=== PATIENT | female | born 1935 | race Caucasian/White ===

== ENCOUNTER 2016-09-14 07:36 | Day surgery (SDC) | payer MEDICARE ==
[2016-09-14] MEDS ORDERED: PROMETHAZINE HCL INJ 25 MG/1 ML VIAL ONE (07:47)
[2016-09-14] MEDS ORDERED: GLYCOPYRROLATE INJ 0.4 MG/2 ML VIAL ONE (07:47)
[2016-09-14] MEDS ORDERED: ONDANSETRON HCL INJ/PF 4 MG/2 ML SDV ONE (07:47)
[2016-09-14] MEDS ORDERED: NALOXONE HCL INJ/PF 0.4 MG/1 ML SDV ONE (07:47)
[2016-09-14] MEDS ORDERED: FLUMAZENIL INJ 0.5 MG/5 ML VIAL IV ONE (07:48)
[2016-09-14] MEDS ORDERED: EPINEPHRINE INJ 1 MG/10 ML DISP.SYRIN ONE (07:48)
[2016-09-14] MEDS ORDERED: MIDAZOLAM 2 MG/2 ML INJ ONE (07:48)
[2016-09-14] MEDS ORDERED: GLUCAGON,HUMAN RECOMB 1 MG INJ ONE (07:49)
[2016-09-14] MEDS: MIDAZOLAM 2 MG/2 ML INJ ONE ×2 (08:28→08:33)
[2016-09-14] MEDS: FENTANYL CITRATE INJ/PF 100 MCG/2 ML AMPUL ONE ×2 (08:30→08:35)
--- NOTE | 2016-09-14 09:24 | Operative Report ---
Operative Report DATE OF SURGERY: 09/14/16 PREOPERATIVE DIAGNOSIS: Personal history of colon polyps POSTOPERATIVE DIAGNOSIS: Same with multiple polyps of the ascending colon and sigmoid colon; extensive sigmoid diverticulosis OPERATION: 1 total colonoscopy to cecum. 2. Multiple polypectomies of ascending colon and sigmoid colon SURGEON: HERIBERTO DANG ANESTHESIA: Moderate Sedation TISSUE REMOVED OR ALTERED: Multiple polyps COMPLICATIONS: No ESTIMATED BLOOD LOSS: none INTRAOPERATIVE FINDINGS: See below PROCEDURE: Obtaining informed consent the patient was taken from the preoperative holding area to the main endoscopy suite where monitoring devices were attached to the patient. Plan and surgical timeout were conducted The patient was placed in the left lateral decubitus position with knees to chest. A perianal examination was performed. There was no visible or palpable anorectal pathology. Sphincter tone was felt to be normal. The flexible adult colonoscope was advanced through the anal rectal canal, all the way to the cecum. Utilization of the cecum was achieved and the ileocecal valve, the appendiceal orifice and transillumination of the anterior abdominal wall. This was an excellent study on the well-prepped bowel. In the ascending colon there were 2 small APPROXIMATELY 2 mm each, both removed with cold forceps device, and retained his polyps and labeled accordingly. The sigmoid colon was a small elevated 2-3 mm polyp which was also removed with the cold forceps device. The colonoscope was withdrawn slowly and methodically checked and the mucosa carefully. There was no evidence of tumor, stricture, bleeding . There were extensive sigmoid diverticulosis ;The scope was slowly withdrawn through the anal rectal canal. Complete visualization of the rectum was achieved with photodocumentation. The scope was withdrawn to the patient's anus. The patient tolerated the procedure well and was taken to the recovery area in stable condition. Procedure surveillance guidelines, will discuss follow-up colonoscopy in 3 years , or sooner if symptoms develop
--- NOTE | 2016-09-14 09:26 | PDOC DISCHARGE SUMMARY ---
Discharge Summary (SDC) - Discharge Final Diagnosis: Multiple colon polyps Date of Surgery: 09/14/16 Discharge Date: 09/14/16 Condition: Good Treatment or Instructions: [facility] [place] [id number] POST ENDOSCOPY DISCHARGE INSTRUCTIONS 1. Diet: Start clear liquids that a regular diet as tolerated. 2. Resume all preoperative medications. All oral anticoagulants and aspirins can be resumed 24 hours after procedure. 3. If a polypectomy was performed some bleeding per rectum may occur. This should stop within 3 days. If not, please contact the office. 4. If you had a colonoscopy you may experience some bloating and delayed return of normal bowel function for several days, your regular bowel movement pattern should resume within a week. 5. Please contact [facility] at to make an appointment with Dr. Renee for 1 to 3 weeks following procedure. 6. If you have any questions or concerns regarding your care,treatment plan or follow up, please contact our office. 7. Per clinical guidelines we recommend you undergo a repeat colonoscopy in 3 years. Discharge Diet: As Tolerated Discharge Activity: Activity As Tolerated Home Care Assistance: None Needed Report the Following to Your Physician Immediately: Shortness of Breath, Increase in Pain, Fever over 101 Degrees
[2016-09-14 10:34] VITALS: BP 119/86
== END 2016-09-14 10:30 | disposition home or self-care (01) ==
LOC: END 07:36
PROVIDERS: ATTEND Surgery
PROC: 0DBN8ZX Excision of Sigmoid Colon, Via Natural or Artificial Opening Endoscopic, Diagnostic (ICD-10-PCS; 2016-09-14)
PROC: 0DBK8ZX Excision of Ascending Colon, Via Natural or Artificial Opening Endoscopic, Diagnostic (ICD-10-PCS; principal; 2016-09-14 08:15)
DX: D12.2 Benign neoplasm of ascending colon (principal); D12.5 Benign neoplasm of sigmoid colon; K57.30 Diverticulosis of large intestine without perforation or abscess without bleeding; E78.00 Pure hypercholesterolemia, unspecified; I10 Essential (primary) hypertension; M19.90 Unspecified osteoarthritis, unspecified site; I25.2 Old myocardial infarction; Z88.8 Allergy status to other drugs, medicaments and biological substances; Z79.899 Other long term (current) drug therapy; Z79.82 Long term (current) use of aspirin
CPT/HCPCS: 45380; 88305 ×2; J2250; J3010; J0171; J1610; J2310; J2405; J2550; J3490

== ENCOUNTER → 2016-09-26 | Outpatient (CLI) | payer MEDICARE ==
[2016-09-26 09:38] LABS: ALANINE AMINOTRANSFERASE 23 U/L (9-52); ALBUMIN 3.8 g/dL (3.5-5.0); ALKALINE PHOSPHATASE 59 U/L (38-126); ASPARTATE AMINO TRANSFERASE 24 U/L (14-36); BILIRUBIN,DIRECT 0.1 mg/dL (0.0-0.4); BILIRUBIN,TOTAL 0.5 mg/dL (0.2-1.3); CHOLESTEROL 131.22 mg/dL (0-200); Direct HDL 72 mg/dL (>40); TOTAL PROTEIN 5.7 g/dL (6.3-8.2); TRIGLYCERIDES 69 mg/dL (<150)
[2016-09-26 09:40] LABS: ANION GAP 8 (5-19); BLOOD UREA NITROGEN 11 mg/dL (7-20); CALCIUM 9.6 mg/dL (8.4-10.2); CARBON DIOXIDE 30 mmol/L (22-30); CHLORIDE 104 mmol/L (98-107); CREATININE RESULT 0.49 mg/dL (0.52-1.25); GLUCOSE 92 mg/dL (75-110); POTASSIUM 4.1 mmol/L (3.6-5.0)
[2016-09-26 09:49] LABS: DIRECT LDL 38 mg/dL (<100)
== END ==
LOC: OD 08:17
PROVIDERS: ATTEND Internal Medicine Cardiovascular Disease
DX: E78.00 Pure hypercholesterolemia, unspecified (principal); Z79.899 Other long term (current) drug therapy
CPT/HCPCS: 36415; 80048; 80061; 80076

== ENCOUNTER → 2016-10-24 | Outpatient (CLI) | payer MEDICARE ==
[~2016-10-24] MED LIST: REGADENOSON INJ 0.4 MG/5 ML DISP.SYRIN IV ONE
--- NOTE | 2016-10-25 13:53 | RADIOLOGY REPORT ---
STRESS TEST REPORT PATIENT NAME: CATHY CALDERON ROOM#: DATE OF SERVICE: 10/24/2016 AGE: 81Y ORDER#: [id number] REFERRING MD: MATHEW DRIVER M.D. PROCEDURE PERFORMED REST/STRESS SINGLE ISOTOPE CARDIOLITE SPECT IMAGING WITH IV LEXISCAN STRESS AND GATED SPECT IMAGING INDICATION For assessment of coronary artery disease. The patient is 25 years post PTCA of the LAD. CLINICAL HISTORY This is a 81-year-old female with history of PTCA of her LAD some 25 years ago with continuing cardiac risk factors of hypertension, hypercholesterolemia, currently complains of chest pains. PROCEDURE The patient received IV Lexiscan 0.4 mg infused over ten seconds. The resting heart rate was 58 bpm and increased to 77 bpm at end infusion. The resting BP was 112/54 and increased to 119/43 at end infusion. The patient had symptoms of shortness of breath, no chest pains. The resting 12 lead EKG showed sinus rhythm at 58 bpm, mild nonspecific inferior ST changes with low precordial voltages. At end infusion, no increased ST changes were seen. Myocardial perfusion imaging was performed at rest 60 minutes following injection of 14.97 mCi Cardiolite. Ten seconds after the IV Lexiscan injection, the patient was injected with 44.7 mCi Cardiolite and flushed. Gated post stress tomographic imaging was performed 60 minutes after stress. FINDINGS The overall quality of the study is fair. There was significant breast attenuation; therefore, attenuation correction software was used. The left ventricular cavity was noted to be slightly enlarged on the stress images compared to the rest images. There is evidence of mild transient ischemic dilatation of the left ventricle. The TID ratio was 1.17. The left ventricular ejection fraction was 62%. SPECT images showed a severe reversible perfusion defect in the apex, apical anterior wall, and apical anterolateral wall. There is also a small, fixed perfusion defect of moderate severity in the apical inferior wall. The gated SPECT imaging showed reduced motion and contraction in the apical anterior wall and the apex. The left ventricular ejection fraction was calculated to be 62%. IMPRESSION: MYOCARDIAL PERFUSION IMAGING IS ABNORMAL. THERE IS A MODERATE AREA OF SEVERE REVERSIBLE PERFUSION DEFECT IN THE APEX, APICAL ANTERIOR WALL, AND APICAL ANTEROLATERAL WALL, WITH A SMALLER, MODERATE SEVERITY FIXED PERFUSION DEFECT IN THE APICAL INFERIOR WALL. THE OVERALL LEFT VENTRICULAR SYSTOLIC FUNCTION WAS NORMAL AND THERE WAS REDUCED MOTION CONTRACTION IN THE APICAL ANTERIOR WALL. NO PRIOR STUDIES FOR COMPARISON. INTERPRETING PHYSICIAN: MATHEW DRIVER M.D. /: LISA TT: [id number] ID: [id number] /: [id number] TD: [id number] JOB: [id number] cc:Sarthak GR M.D. > MTDPuneet
== END ==
LOC: RAD 06:41
PROVIDERS: ATTEND Internal Medicine Cardiovascular Disease
DX: R07.9 Chest pain, unspecified (principal)
CPT/HCPCS: 93017; 78452; A9500; J2785; Q9969

== ENCOUNTER → 2017-05-15 | Outpatient (CLI) | payer MEDICARE ==
[2017-05-15 09:50] LABS: ALANINE AMINOTRANSFERASE 33 U/L (9-52); ALBUMIN 3.5 g/dL (3.5-5.0); ALKALINE PHOSPHATASE 62 U/L (38-126); ANION GAP 10 (5-19); ASPARTATE AMINO TRANSFERASE 23 U/L (14-36); BILIRUBIN,DIRECT 0.4 mg/dL (0.0-0.4); BILIRUBIN,TOTAL 0.4 mg/dL (0.2-1.3); BLOOD UREA NITROGEN 9 mg/dL (7-20); CALCIUM 9.4 mg/dL (8.4-10.2); CARBON DIOXIDE 31 mmol/L (22-30); CHLORIDE 100 mmol/L (98-107); CHOLESTEROL 101.85 mg/dL (0-200); CREATININE RESULT 0.54 mg/dL (0.52-1.25); Direct HDL 59 mg/dL (>40); GLUCOSE 100 mg/dL (75-110); POTASSIUM 4.1 mmol/L (3.6-5.0); SODIUM 140.7 mmol/L (137-145); TOTAL PROTEIN 5.7 g/dL (6.3-8.2); TRIGLYCERIDES 54 mg/dL (<150)
[2017-05-15 10:01] LABS: DIRECT LDL 31 mg/dL (<100)
== END ==
LOC: OD 08:31
PROVIDERS: ATTEND Internal Medicine Cardiovascular Disease
DX: E78.00 Pure hypercholesterolemia, unspecified (principal); Z79.899 Other long term (current) drug therapy
CPT/HCPCS: 36415; 80048; 80061; 80076

== ENCOUNTER → 2017-10-22 | Outpatient (CLI) | payer MEDICARE ==
--- NOTE | 2017-10-22 12:18 | RADIOLOGY REPORT (SQ) ---
EXAM DESCRIPTION: FOOT LEFT COMPLETE COMPLETED DATE/TIME: 10/22/2017 12:00 pm REASON FOR STUDY: LEFT FOOT PAIN M79.672 PAIN IN LEFT FOOT COMPARISON: None. NUMBER OF VIEWS: Three views. TECHNIQUE: AP, lateral and oblique radiographic images acquired of the left foot. LIMITATIONS: None. FINDINGS: MINERALIZATION: Normal. BONES: No acute fracture or dislocation. No worrisome bone lesions. JOINTS: There are extensive degenerative joint changes in the tarsal/metatarsal joints. Old fracture s cannot be excluded. SOFT TISSUES: No soft tissue swelling. No foreign body. OTHER: No other significant finding. IMPRESSION: Degenerative joint disease in the tarsal/metatarsal joints. TECHNICAL DOCUMENTATION: JOB ID: [id number] [employer]- All Rights Reserved Reading location - IP/workstation name: [email or web address]
== END ==
LOC: OD 11:41
PROVIDERS: ATTEND Family Medicine
DX: M79.672 Pain in left foot (principal); M19.072 Primary osteoarthritis, left ankle and foot

== ENCOUNTER 2017-12-02 13:49 | Emergency (ER) | payer MEDICARE ==
[2017-12-02] MEDS ORDERED: ASPIRIN 81 MG TABLET, CHEWABLE PO ONE (14:57)
--- NOTE | 2017-12-02 14:57 | ER Document Report ---
ED Medical Screen (RME) - General Chief Complaint: Shortness Of Breath Stated Complaint: POSSIBLE ALLERGIC REACTION Time Seen by Provider: 12/02/17 14:55 Mode of Arrival: Ambulatory Information source: Patient Notes: This is a pleasant 82-year-old female with a history of coronary artery disease (VT in 1991, PTCA of the LAD), hypertension, dyslipidemia who presents to the emergency room with shortness of breath that she attributes to a possible allergic reaction. Patient was on holiday in [place] and states she was walking through the lobby last night that had a new carpet and she started to get short of breath. When she went out into the open air, she states that the shortness of breath resolved. She went out to dinner and return back to the [facility] and noticed that as she was walking through the lobby, she started to get shortness of breath and chest heaviness again. This time, the discomfort persisted and she still had it when she woke up this morning in [place] this morning at approximately 8 AM. She drove back to [place] shortly thereafter and arrives with her . She does state that she is feeling better but not back to normal. Primary CARE physician: Dr. Luther [employer] Rebuilder: Dr. Hammonds TRAVEL OUTSIDE OF THE U.S. IN LAST 30 DAYS: No - Related Data Allergies/Adverse Reactions: lovastatin [From Mevacor] Allergy (Mild, Verified 12/02/17 13:53) rash pollen extracts Allergy (Verified 12/02/17 13:53) Stuffy Nose chlorpheniramine [From Triaminic] Adverse Reaction (Severe, Verified 12/02/17 13 :53) speeds heartrate chlorpheniramine maleate [From Triaminic] Adverse Reaction (Severe, Verified 04/11 13:53) speeds heartrate dextromethorphan HBr [From Triaminic] Adverse Reaction (Severe, Verified 13:53) speeds heartrate phenylephrine HCl [From Triaminic] Adverse Reaction (Severe, Verified 12/02/17 13:53) speeds heartrate phenylpropanolamine HCl [From Triaminic] Adverse Reaction (Severe, Verified 04/11 13:53) speeds heartrate xylometazoline HCl [From Triaminic] Adverse Reaction (Severe, Verified 12/02/17 13:53) speeds heartrate Past Medical History - Social History Chew tobacco use (# tins/day): No Frequency of alcohol use: None Drug Abuse: None - Past Medical History Cardiac Medical History: Reports: Hx Coronary Artery Disease, Hx Heart Attack - 1991, Hx Hypertension Pulmonary Medical History: Denies: Hx Asthma, Hx Bronchitis, Hx COPD, Hx Pneumonia Neurological Medical History: Denies: Hx Cerebrovascular Accident, Hx Seizures Renal/ Medical History: Denies: Hx Peritoneal Dialysis Musculoskeltal Medical History: Reports Hx Arthritis Past Surgical History: Denies: Hx Hysterectomy - Immunizations Hx Diphtheria, Pertussis, Tetanus Vaccination: Yes Physical Exam - Vital signs Vitals: Temp Pulse Resp BP Pulse Ox 98.5 F 72 18 116/54 L 93 12/02/17 13:57 12/02/17 13:57 12/02/17 13:57 12/02/17 13:57 12/02/17 13:57 Course - Vital Signs Vital signs: Temp Pulse Resp BP Pulse Ox 98.5 F 72 18 116/54 L 93 12/02/17 13:57 12/02/17 13:57 12/02/17 13:57 12/02/17 13:57 12/02/17 13:57 Doctor's Discharge - Discharge Referrals: RAN LUTHER MD [Primary Care Provider] - Follow up as needed
[2017-12-02 15:35] LABS: ABSOLUTE BASOPHILS # (AUTO) 0.1 10^3/uL (0.0-0.2); ABSOLUTE EOSINOPHILS # (AUTO) 0.1 10^3/uL (0.0-0.6); ABSOLUTE LYMPHOCYTES (AUTO) 1.7 10^3/uL (0.5-4.7); ABSOLUTE MONOCYTES (AUTO) 1.5 10^3/uL (0.1-1.4); ABSOLUTE NEUT (AUTO) 7.9 10^3/uL (1.7-8.2); BASOPHILS % (AUTO) 0.6 % (0-2); EOSINOPHILS % (AUTO) 0.6 % (0-6); HEMATOCRIT 40.1 % (36.0-47.0); HEMOGLOBIN 13.8 g/dL (12.0-15.5); LYMPHOCYTES % (AUTO) 15.2 % (13-45); MEAN CORPUSCULAR HEMOGLOBIN 29.5 pg (27.0-33.4); MEAN CORPUSCULAR HGB CONC 34.5 g/dL (32.0-36.0); MEAN CORPUSCULAR VOLUME 85 fl (80-97); MONOCYTES % (AUTO) 13.5 % (3-13); PLATELET COUNT 189 10^3/uL (150-450); RED BLOOD COUNT 4.69 10^6/uL (3.72-5.28); RED CELL DISTRIBUTION WIDTH 14.2 % (11.5-14.0); SEGMENTED NEUTROPHILS % (AUTO) 70.1 % (42-78); TOTAL CELLS COUNTED % (AUTO) 100 %; WHITE BLOOD COUNT 11.3 10^3/uL (4.0-10.5)
[2017-12-02 15:53] LABS: ALANINE AMINOTRANSFERASE 22 U/L (9-52); ALKALINE PHOSPHATASE 58 U/L (38-126); ANION GAP 13 (5-19); ASPARTATE AMINO TRANSFERASE 26 U/L (14-36); BILIRUBIN,DIRECT 0.3 mg/dL (0.0-0.4); BILIRUBIN,TOTAL 0.5 mg/dL (0.2-1.3); BLOOD UREA NITROGEN 17 mg/dL (7-20); CALCIUM 9.4 mg/dL (8.4-10.2); CARBON DIOXIDE 29 mmol/L (22-30); CHLORIDE 102 mmol/L (98-107); CREATINE KINASE 61 U/L (30-135); GLUCOSE 119 mg/dL (75-110); POTASSIUM 3.5 mmol/L (3.6-5.0); SODIUM 143.5 mmol/L (137-145); TOTAL PROTEIN 6.7 g/dL (6.3-8.2)
--- NOTE | 2017-12-02 15:57 | RADIOLOGY REPORT (SQ) ---
EXAM DESCRIPTION: CHEST SINGLE VIEW COMPLETED DATE/TIME: 12/02/2017 3:45 pm REASON FOR STUDY: sob COMPARISON: None. NUMBER OF VIEWS: One view. TECHNIQUE: Single frontal radiographic view of the chest acquired. LIMITATIONS: None. FINDINGS: LUNGS AND PLEURA: Minimal basilar subsegmental atelectasis or scar. No evidence of acute infiltrate. No pneumothorax. No significant pleural fluid MEDIASTINUM AND HILAR STRUCTURES: No masses. Contour normal. HEART AND VASCULAR STRUCTURES: Cardiomegaly, heart size likely accentuated by portable technique. No evidence of failure, however. BONES: Osteopenic. HARDWARE: None in the chest. OTHER: No other significant finding. IMPRESSION: No acute cardiopulmonary disease. TECHNICAL DOCUMENTATION: JOB ID: [id number] [email or web address]- All Rights Reserved Reading location - IP/workstation name: [email or web address]
[2017-12-02 16:09] LABS: CREATINE KINASE MB 1.05 ng/mL (<4.55)
[2017-12-02 16:13] LABS: TROPONIN I < 0.012 ng/mL
[2017-12-02] MEDS ORDERED: METHYLPREDNISOLONE INJ 125 MG/2 ML SDV IV ONE (16:26)
--- NOTE | 2017-12-02 16:27 | ER Document Report ---
ED General - General Chief Complaint: Shortness Of Breath Stated Complaint: POSSIBLE ALLERGIC REACTION Time Seen by Provider: 12/02/17 14:55 Mode of Arrival: Ambulatory TRAVEL OUTSIDE OF THE [place].S[place] IN LAST 30 DAYS: No - HPI Notes: 82-year-old female presents to the ED for concerns of difficulty breathing after she was exposed to new carpeting last night in the motel, states she is walking down the hallway were new carpet was placed, caused her to have a little difficulty breathing, resolved when she was outside. Return back to the hotel approximately 2 hours later, had want to be stable tell, with carpet, this did irritate her breathing. Patient woke up this morning, patient states she had to then walk to the hallway with a new carpet which also caused her to have difficulty breathing. Denies fevers, chills, chest pain,palpitations, shortness of breath, dyspnea, nausea, vomiting, diarrhea, abdominal pain, hematuria,blurred vision, double vision, loss of vision, speech changes, LH, dizziness, syncope, headaches, wheezing, ST, URI, neck pain, weakness, bowel or bladder dysfunction, saddle anesthesia, numbness or tingling in bilateral upper or lower extremities equally, muscle paralysis, weakness in bilateral upper or lower extremities equally or rash. Denies IV drug use. - Related Data Allergies/Adverse Reactions: lovastatin [From Mevacor] Allergy (Mild, Verified 12/02/17 13:53) rash pollen extracts Allergy (Verified 12/02/17 13:53) Stuffy Nose chlorpheniramine [From Triaminic] Adverse Reaction (Severe, Verified 12/02/17 13 :53) speeds heartrate chlorpheniramine maleate [From Triaminic] Adverse Reaction (Severe, Verified 04/11 13:53) speeds heartrate dextromethorphan HBr [From Triaminic] Adverse Reaction (Severe, Verified 13:53) speeds heartrate phenylephrine HCl [From Triaminic] Adverse Reaction (Severe, Verified 12/02/17 13:53) speeds heartrate phenylpropanolamine HCl [From Triaminic] Adverse Reaction (Severe, Verified 04/11 13:53) speeds heartrate xylometazoline HCl [From Triaminic] Adverse Reaction (Severe, Verified 12/02/17 13:53) speeds heartrate Past Medical History - General Information source: Patient - Social History Smoking Status: Current Every Day Smoker Chew tobacco use (# tins/day): No Frequency of alcohol use: None Drug Abuse: None Family History: Reviewed & Not Pertinent Patient has suicidal ideation: No Patient has homicidal ideation: No - Past Medical History Cardiac Medical History: Reports: Hx Coronary Artery Disease, Hx Heart Attack - 1991, Hx Hypercholesterolemia, Hx Hypertension Pulmonary Medical History: Denies: Hx Asthma, Hx Bronchitis, Hx COPD, Hx Pneumonia Neurological Medical History: Denies: Hx Cerebrovascular Accident, Hx Seizures Renal/ Medical History: Denies: Hx Peritoneal Dialysis Musculoskeltal Medical History: Reports Hx Arthritis Past Surgical History: Reports: Hx Orthopedic Surgery - bilateral knee replacements. Denies: Hx Hysterectomy - Immunizations Hx Diphtheria, Pertussis, Tetanus Vaccination: Yes Hx Pneumococcal Vaccination: 06/25/07 Review of Systems - Review of Systems Constitutional: No symptoms reported EENT: No symptoms reported Cardiovascular: No symptoms reported Respiratory: See HPI Gastrointestinal: No symptoms reported Genitourinary: No symptoms reported Female Genitourinary: No symptoms reported Musculoskeletal: No symptoms reported Skin: No symptoms reported Hematologic/Lymphatic: No symptoms reported Neurological/Psychological: No symptoms reported Physical Exam - Vital signs Vitals: Temp Pulse Resp BP Pulse Ox 98.5 F 72 18 116/54 L 93 12/02/17 13:57 12/02/17 13:57 12/02/17 13:57 12/02/17 13:57 12/02/17 13:57 - Notes Notes: PHYSICAL EXAMINATION: GENERAL: Well-appearing, well-nourished and in no acute distress. HEAD: Atraumatic, normocephalic. EYES: Pupils equal round and reactive to light, extraocular movements intact, conjunctiva are normal. ENT: Nares patent, oropharynx clear without exudates. Moist mucous membranes. NECK: Normal range of motion, supple without lymphadenopathy LUNGS: Breath sounds clear to auscultation bilaterally and equal. No wheezes rales or rhonchi. HEART: Regular rate and rhythm without murmurs ABDOMEN: Soft, nontender, nondistended abdomen. No guarding, no rebound. No masses appreciated. Female : deferred Musculoskeletal: Normal range of motion, no pitting or edema. No cyanosis. NEUROLOGICAL: Cranial nerves grossly intact. Normal speech, normal gait. Normal sensory, motor exams PSYCH: Normal mood, normal affect. SKIN: Warm, Dry, normal turgor, no rashes or lesions noted. Course - Re-evaluation Re-evalutation: 12/02/17 19:20 82-year-old female evaluation for difficulty with breathing, has since resolved since patient was brought to her room in the ED, CBC negative for leukocytosis or anemia, CMP negative for any hepatic or renal deficiency, electrolytes stable. 2 separate sets of cardiac enzymes negative, EKG negative for any STEMI , chest x-ray unremarkable. I have reevaluated this patient multiple times and I estimate there is LOW risk for RUPTURED ESOPHAGUS, PNEUMOTHORAX, PULMONARY EMBOLISM, ACUTE CORONARY SYNDROME, OR THORACIC AORTIC DISSECTION, thus I consider the discharge disposition reasonable. no significant life threatening changes are noted. The patient and I have discussed the diagnosis and risks, and we agree with discharging home with close follow-up. We also discussed returning to the Emergency Department immediately if new or worsening symptoms occur. We have discussed the symptoms which are most concerning (e.g., bloody sputum, worsening pain or shortness of breath) that necessitate immediate return. The patient and I have discussed the diagnosis and risks, and we agree with discharging home and close follow-up. We also discussed returning to the Emergency Department immediately if new or worsening symptoms occur with the understanding that symptoms and presentations can change. At this time will discharge with return precautions and follow-up recommendations. Verbal discharge instructions given a the bedside and opportunity for questions given. We have discussed the symptoms which are most concerning (e.g., saddle anesthesia, urinary or bowel incontinence or retention, changing or worsening pain) that necessitate immediate return. Medication warnings reviewed. All questions and concerns answered by this provider. Patient is in agreement with this plan and has verbalized understanding of return precautions and the need for primary care follow-up in the next 24-72 hours. Patient verbalized understanding of plan of care and agree with plan of care. - Vital Signs Vital signs: Temp Pulse Resp BP Pulse Ox 98.5 F 72 18 130/60 H 87 L 12/02/17 13:57 12/02/17 13:57 12/02/17 15:49 12/02/17 15:46 12/02/17 15:46 - Laboratory Result Diagrams: 12/02/17 15:26 12/02/17 15:26 Laboratory results interpreted by me: 12/02/17 12/02/17 15:26 15:26 WBC 11.3 H RDW 14.2 H Monocytes % 13.5 H Absolute Monocytes 1.5 H Potassium 3.5 L Glucose 119 H Discharge - Discharge Clinical Impression: evalation of shortness of breath Allergic reaction Qualifiers: Encounter type: initial encounter Qualified Code(s): T78.40XA - Allergy, unspecified, initial encounter Condition: Stable Disposition: HOME, SELF-CARE Instructions: Acute Allergic Reaction ([facility]) Additional Instructions: Your labs are negative, if your symptoms persist return to the emergency room. Follow-up with your doctor within 24 hours. Return immediately for any new or worsening symptoms. Follow up with primary care provider, call tomorrow to make followup appointment. Referrals: RAN LUTHER MD [Primary Care Provider] - Follow up tomorrow MATHEW DRIVER MD [EMERITUS] - Follow up as needed
[2017-12-02 19:19] VITALS: BP 106/55
--- NOTE | 2017-12-03 07:51 | EKG REPORT ---
SEVERITY:- OTHERWISE NORMAL ECG - SINUS RHYTHM BORDERLINE LEFT AXIS DEVIATION : Confirmed by: Guille Callaway MD 03-Dec-2017 07:50:09
== END 2017-12-02 19:30 | disposition home or self-care (01) ==
LOC: ER 13:49
DX: T78.40XA Allergy, unspecified, initial encounter (principal); R06.02 Shortness of breath; X58.XXXA Exposure to other specified factors, initial encounter; F17.200 Nicotine dependence, unspecified, uncomplicated; I25.10 Atherosclerotic heart disease of native coronary artery without angina pectoris; I10 Essential (primary) hypertension; I25.2 Old myocardial infarction; Z88.8 Allergy status to other drugs, medicaments and biological substances; Z91.048 Other nonmedicinal substance allergy status
CPT/HCPCS: 93005; 99285; 96374; 36415; 82553; 82550; 85025; 80053; 84484; 71045; 93010; A9270; J2930

== ENCOUNTER → 2018-03-29 | Outpatient (CLI) | payer MEDICARE ==
[2018-03-29 09:17] LABS: ALANINE AMINOTRANSFERASE 28 U/L (9-52); ALBUMIN 3.7 g/dL (3.5-5.0); ALKALINE PHOSPHATASE 56 U/L (38-126); ANION GAP 10 (5-19); ASPARTATE AMINO TRANSFERASE 26 U/L (14-36); BILIRUBIN,DIRECT 0.2 mg/dL (0.0-0.4); BILIRUBIN,TOTAL 0.6 mg/dL (0.2-1.3); BLOOD UREA NITROGEN 13 mg/dL (7-20); CALCIUM 9.9 mg/dL (8.4-10.2); CARBON DIOXIDE 29 mmol/L (22-30); CHLORIDE 102 mmol/L (98-107); CHOLESTEROL 129.41 mg/dL (0-200); GLUCOSE 101 mg/dL (75-110); POTASSIUM 4.3 mmol/L (3.6-5.0); SODIUM 140.5 mmol/L (137-145); TOTAL PROTEIN 6.1 g/dL (6.3-8.2); TRIGLYCERIDES 58 mg/dL (<150)
[2018-03-29 09:28] LABS: DIRECT LDL 38 mg/dL (<100)
== END ==
LOC: LAB 08:41
PROVIDERS: ATTEND Internal Medicine Cardiovascular Disease
DX: E78.00 Pure hypercholesterolemia, unspecified (principal); I10 Essential (primary) hypertension; E66.09 Other obesity due to excess calories; Z79.899 Other long term (current) drug therapy
CPT/HCPCS: 36415; 80048; 80061; 80076

== ENCOUNTER → 2018-05-10 | Outpatient (CLI) | payer MEDICARE ==
--- NOTE | 2018-05-10 11:16 | RADIOLOGY REPORT (SQ) ---
EXAM DESCRIPTION: U/S ABDOMEN COMPLETE W/DOPPLER COMPLETED DATE/TIME: 05/10/2018 10:40 am REASON FOR STUDY: R19.00 INTRA-ABDOMINAL AND PELVIC SWELLING, MASS AND LUMP, UNSPECIFIED SITE R19.00 INTRA-ABD AND PELVIC SWELLING, MASS AND LUMP, UNSP SI COMPARISON: None. TECHNIQUE: Dynamic and static grayscale images acquired of the abdomen and recorded on PACS. Additio nal selected color Doppler and spectral images recorded. LIMITATIONS: None. FINDINGS: PANCREAS: No masses. Visualized pancreatic duct normal caliber. LIVER: No masses. Echotexture normal. LIVER VASCULATURE: Normal directional flow of the main portal vein and hepatic veins. GALLBLADDER: No stones. Normal wall thickness. No pericholecystic fluid. ULTRASOUND-DETECTED GOINS'S SIGN: Negative. INTRAHEPATIC DUCTS AND COMMON DUCT: Common bile duct is dilated at 9.7 cm. INFERIOR VENA CAVA: Not imaged. AORTA: No aneurysm. RIGHT KIDNEY: Small, 8.6 cm. Normal echogenicity. No solid or suspicious masses. No hydronephr osis. No calcifications. LEFT KIDNEY: Normal size, 11.2 cm. Normal echogenicity. No solid or suspicious masses. Mild pr ominence of the renal pelvis. No true hydronephrosis. No calcifications. SPLEEN: Normal size, 9.2 cm. No solid masses. PERITONEAL AND PLEURAL SPACES: No ascites or effusions. OTHER: No other significant finding. IMPRESSION: Common bile duct is dilated at 9.7 cm. Correlate for biliary obstruction. The gallblad cassy is normal. TECHNICAL DOCUMENTATION: JOB ID: [id number] [employer]- All Rights Reserved Reading location - IP/workstation name: [email or web address]
--- NOTE | 2018-05-10 11:25 | RADIOLOGY REPORT (SQ) ---
EXAM DESCRIPTION: U/S NON-OB PELVIS LTD W/O DOP COMPLETED DATE/TIME: 05/10/2018 10:40 am REASON FOR STUDY: R19.00 INTRA-ABDOMINAL AND PELVIC SWELLING, MASS AND LUMP, UNSPECIFIED SITE R19.00 INTRA-ABD AND PELVIC SWELLING, MASS AND LUMP, UNSP SI COMPARISON: None. TECHNIQUE: Dynamic and static grayscale images acquired of the pelvis via transabdominal approach an d recorded on PACS. Additional selected color Doppler and spectral images recorded. LIMITATIONS: None. FINDINGS: UTERUS: There is according to the work sheet there is a pelvic mass measuring 6.1 x 3.7 x 5.1 cm. This is said to be anterior to the uterus. This is not very well seen on these images. Acc ording to report of an ultrasound from [facility] from 04/20/2016 the mass is posterior to the body of the uterus. ENDOMETRIAL STRIPE: No focal or generalized thickening. No masses. CERVIX: 1.9 cm. RIGHT OVARY AND DOPPLER: Ovary not seen. LEFT OVARY AND DOPPLER: Ovary not seen. FREE FLUID: None noted. OTHER: No other significant finding. MEASUREMENTS: UTERUS: 4.3 x 3 x 2.4 cm. ENDOMETRIAL STRIPE: 2.7 mm. RIGHT OVARY: Ovary not seen. LEFT OVARY: Ovary not seen. IMPRESSION: Limited study. Pelvic mass may represent a pedunculated fibroid. Consider CT for furth er evaluation. TECHNICAL DOCUMENTATION: JOB ID: [id number] [employer]- All Rights Reserved Rev-11/09 Reading location - IP/workstation name: [email or web address]
== END ==
LOC: RAD 08:15
PROVIDERS: ATTEND Family Medicine
DX: R19.00 Intra-abdominal and pelvic swelling, mass and lump, unspecified site (principal)
CPT/HCPCS: 76700; 76857; 93976

== ENCOUNTER → 2018-05-23 | Outpatient (CLI) | payer MEDICARE ==
--- NOTE | 2018-05-23 10:43 | RADIOLOGY REPORT (SQ) ---
EXAM DESCRIPTION: CT ABD/PELVIS WITH IV ONLY COMPLETED DATE/TIME: 05/23/2018 10:03 am REASON FOR STUDY: PELVIC MASS R19.00 INTRA-ABD AND PELVIC SWELLING, MASS AND LUMP, UNSP SI COMPARISON: CT abdomen pelvis 06/03/2009 Pelvic ultrasound 05/10/2018 TECHNIQUE: CT scan of the abdomen and pelvis performed using helical scanning technique with dynamic intravenous contrast injection. No oral contrast. Images reviewed with lung, soft tissue, and bone windows. Reconstructed coronal and sagittal MPR images reviewed. Delayed images for evaluation of the urinary system also acquired. All images stored on PACS. All CT scanners at this facility use dose modulation, iterative reconstruction, and/or weight based d osing when appropriate to reduce radiation dose to as low as reasonably achievable (ALARA). [facility]: Dose Right [facility]: CareDose [facility]: Dose Right [facility]: Teradose 4D [facility]: Club Venit CONTRAST TYPE AND DOSE: contrast/concentration: Isovue 350.00 mg/ml; Total Contrast Delivered: 98.0 ml; Total Saline Delivered: 72.0 ml RENAL FUNCTION: GFR > 60. RADIATION DOSE: CT Rad equipment meets quality standard of care and radiation dose reduction techniq ues were employed. CTDIvol: 14.8 - 16.6 mGy. DLP: 1647 mGy-cm.. LIMITATIONS: None. FINDINGS: LOWER CHEST: Small hiatal hernia. Lung bases are clear. Spotty coronary artery calcifica tion LIVER: Normal size. No masses. 1.6 cm cyst sub- diaphragmatic surface right lobe liver. No dilated ducts. SPLEEN: Normal size. No focal lesions. PANCREAS: No masses. No significant calcifications. No adjacent inflammation or peripancreatic fluid collections. Pancreatic duct not dilated. GALLBLADDER: No identified stones by CT criteria. No inflammatory changes to suggest cholecystitis. ADRENAL GLANDS: No significant masses or asymmetry. RIGHT KIDNEY AND URETER: No solid masses. Right upper pole 3 cm cortical cyst. Right parapelvic cys ts No significant calcifications. No hydronephrosis or hydroureter. LEFT KIDNEY AND URETER: No solid masses. Right parapelvic cysts. No significant calcifications. N o hydronephrosis or hydroureter. AORTA AND VESSELS: No aneurysm. No dissection. Renal arteries, SMA, celiac without stenosis. RETROPERITONEUM: No retroperitoneal adenopathy, hemorrhage or masses. BOWEL AND PERITONEAL CAVITY: No CT evidence of bowel obstruction or free intraperitoneal air or fluid . Descending and sigmoid colon diverticuli without CT signs of acute diverticulitis APPENDIX: Normal. PELVIS: In the right adnexa, a well-circumscribed intermediate -density mass is present with spotty c alcifications along the superior margin, measuring 40 Hounsfield units. No significant contrast enha ncement. This correlates with ultrasound 05/10/2018 and new compared to study from 2008. This is li pio ovarian in origin, and could be an ovarian cyst or paraovarian cyst. Low-grade ovarian cystic ne oplasm is possible. Pedunculated fibroid is considered less likely. Uterus, left ovary unremarkable . Bladder unremarkable. No free pelvic fluid. No pelvic adenopathy ABDOMINAL WALL: No masses. No hernias. BONES: No significant or acute findings. OTHER: No other significant finding. IMPRESSION: Complex cystic mass with intermediate density and spotty calcifications along the superi or margin in the right adnexa. 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 Paraovar gemma cyst is possible. Pedunculated fibroid is possible but considered less likely TECHNICAL DOCUMENTATION: JOB ID: [id number] Quality ID # [id number]: Final reports with documentation of one or more dose reduction techniques (e.g., Au tomated exposure control, adjustment of the mA and/or kV according to patient size, use of iterative reconstruction technique) 2010 [employer]- All Rights Reserved Reading location - IP/workstation name: MARII
== END ==
LOC: RAD 08:59
PROVIDERS: ATTEND Family Medicine
DX: R19.00 Intra-abdominal and pelvic swelling, mass and lump, unspecified site (principal)
CPT/HCPCS: 74177

== ENCOUNTER → 2018-09-19 | Outpatient (CLI) | payer MEDICARE ==
[2018-09-19 10:04] LABS: ALANINE AMINOTRANSFERASE 24 U/L (9-52); ALBUMIN 3.8 g/dL (3.5-5.0); ALKALINE PHOSPHATASE 58 U/L (38-126); ANION GAP 6 (5-19); ASPARTATE AMINO TRANSFERASE 27 U/L (14-36); BILIRUBIN,DIRECT 0.2 mg/dL (0.0-0.4); BILIRUBIN,TOTAL 0.5 mg/dL (0.2-1.3); BLOOD UREA NITROGEN 12 mg/dL (7-20); CALCIUM 10.1 mg/dL (8.4-10.2); CARBON DIOXIDE 31 mmol/L (22-30); CHLORIDE 100 mmol/L (98-107); CHOLESTEROL 133.92 mg/dL (0-200); GLUCOSE 98 mg/dL (75-110); POTASSIUM 4.1 mmol/L (3.6-5.0); TOTAL PROTEIN 6.1 g/dL (6.3-8.2); TRIGLYCERIDES 68 mg/dL (<150)
[2018-09-19 10:14] LABS: DIRECT LDL 51 mg/dL (<100)
== END ==
LOC: LAB 08:41
PROVIDERS: ATTEND Internal Medicine Cardiovascular Disease
DX: I10 Essential (primary) hypertension (principal); E78.00 Pure hypercholesterolemia, unspecified; Z79.899 Other long term (current) drug therapy
CPT/HCPCS: 36415; 80048; 80061; 80076

== ENCOUNTER → 2018-10-15 | Outpatient (CLI) | payer MEDICARE ==
--- NOTE | 2018-10-16 09:59 | RADIOLOGY REPORT ---
STRESS TEST REPORT PATIENT NAME: CATHY CALDERON ROOM#: DATE OF SERVICE: 10/15/2018 AGE: 83Y ORDER#: [id number] REFERRING MD: MATHEW DRIVER M.D. PROCEDURE PERFORMED: Rest/stress single-isotope Cardiolite SPECT imaging using IV Lexiscan stress and gated SPECT imaging. INDICATIONS: For assessment of coronary artery disease. CLINICAL HISTORY: This is an 83-year-old female with hypercholesterolemia, hypertension, and family history of CAD, known coronary artery disease, currently has exertional dyspnea but no chest pains. REPORT: The patient received IV Lexiscan 0.4 mg infused over 10 seconds and flushed. The resting heart rate was 56 bpm and increased to 92 bpm at end of infusion. The resting blood pressure was 107/56 and stayed around 107/57 at end infusion. The patient had symptoms of feeling weird, no chest pains, minimal shortness of breath, minimal dizziness. The resting 12-lead EKG showed low voltage, NSR, 56, PACs, normal ST segments. At end infusion heart rate was 80 per minute, no ST changes seen. Myocardial perfusion imaging was performed at rest 60 minutes following the injection of 14.72 mCi of Cardiolite. Ten seconds after IV Lexiscan infusion she was injected with 43.6 mCi of Cardiolite and flushed. Gated post-stress tomographic imaging was performed 60 minutes after stress. FINDINGS: The overall quality of the study is fair. This is due to significant breast attenuation on both the rest and stress studies. There is no attenuation correction software due to malfunction of the dual-head camera. Left ventricular cavity is noted to be normal in size on both the rest and stress studies. There is no evidence of abnormal transient ischemic dilatation of the left ventricle. The computer estimated TID ratio of 1.24; this cannot be confirmed visually. SPECT images showed reversible ischemia in the apical anterior wall, moderate sized area, with subtotal reversibility. There is also a small fixed perfusion defect in the apex of the left ventricle; this does not appear to be reversible. Gated SPECT imaging showed no motion contraction in the apex and in the apical anterior wall. The left ventricular ejection fraction was calculated at 66%. IMPRESSION: Myocardial perfusion imaging is abnormal. There is a moderate area of reversible ischemia in the apical anterior wall; the reversibility,however, is subtotal and there is no motion contraction in the apical anterior wall. There is also a small fixed perfusion defect in the apex of the left ventricle but no motion and contraction seen. Overall left ventricular systolic function was 66%. No prior studies for comparison. INTERPRETING PHYSICIAN: MATHEW DRIVER M.D. /: [id number] TT: 0945 ID: [id number] /: [id number] TD: 0940 JOB: [id number] cc:MATHEW DRIVER M.D. > [facility]
== END ==
LOC: RAD 06:43
PROVIDERS: ATTEND Internal Medicine Cardiovascular Disease
DX: R06.02 Shortness of breath (principal)
CPT/HCPCS: 93017; 78452; A9500; J2785; Q9969

== ENCOUNTER → 2019-02-10 | Outpatient (CLI) | payer MEDICARE ==
[2019-02-10 09:40] LABS: CHOLESTEROL 135.75 mg/dL (0-200); TRIGLYCERIDES 48 mg/dL (<150)
[2019-02-10 09:51] LABS: DIRECT LDL 56 mg/dL (<100)
== END ==
LOC: LAB 09:12
PROVIDERS: ATTEND Internal Medicine Cardiovascular Disease
DX: E78.00 Pure hypercholesterolemia, unspecified (principal)
CPT/HCPCS: 36415; 80061

== ENCOUNTER → 2019-05-08 | Outpatient (CLI) | payer MEDICARE ==
[2019-05-08 09:31] LABS: ALKALINE PHOSPHATASE 47 U/L (38-126); ANION GAP 5 (5-19); ASPARTATE AMINO TRANSFERASE 28 U/L (14-36); BILIRUBIN,TOTAL 0.5 mg/dL (0.2-1.3); BLOOD UREA NITROGEN 14 mg/dL (7-20); CALCIUM 9.7 mg/dL (8.4-10.2); CARBON DIOXIDE 31 mmol/L (22-30); CHLORIDE 103 mmol/L (98-107); CHOLESTEROL 136.62 mg/dL (0-200); GLUCOSE 96 mg/dL (75-110); TOTAL PROTEIN 6.2 g/dL (6.3-8.2); TRIGLYCERIDES 68 mg/dL (<150)
[2019-05-08 09:43] LABS: DIRECT LDL 52 mg/dL (<100)
== END ==
LOC: LAB 08:54
PROVIDERS: ATTEND Internal Medicine Cardiovascular Disease
DX: E78.00 Pure hypercholesterolemia, unspecified (principal); I10 Essential (primary) hypertension; E11.9 Type 2 diabetes mellitus without complications; Z79.899 Other long term (current) drug therapy
CPT/HCPCS: 36415; 80048; 80061; 80076; 83036

== ENCOUNTER → 2019-11-05 | Outpatient (CLI) | payer MEDICARE ==
[2019-11-05 09:33] LABS: ALBUMIN 4.1 g/dL (3.5-5.0); ALKALINE PHOSPHATASE 53 U/L (38-126); ANION GAP 5 (5-19); ASPARTATE AMINO TRANSFERASE 31 U/L (14-36); BILIRUBIN,TOTAL 0.5 mg/dL (0.2-1.3); BLOOD UREA NITROGEN 13 mg/dL (7-20); CALCIUM 9.5 mg/dL (8.4-10.2); CARBON DIOXIDE 32 mmol/L (22-30); CHLORIDE 101 mmol/L (98-107); CHOLESTEROL 142.18 mg/dL (0-200); GLUCOSE 97 mg/dL (75-110); POTASSIUM 4.2 mmol/L (3.6-5.0); TOTAL PROTEIN 6.3 g/dL (6.3-8.2); TRIGLYCERIDES 69 mg/dL (<150)
[2019-11-05 09:44] LABS: DIRECT LDL 55 mg/dL (<100)
== END ==
LOC: OD 08:01
PROVIDERS: ATTEND Internal Medicine Cardiovascular Disease
DX: E78.00 Pure hypercholesterolemia, unspecified (principal); I10 Essential (primary) hypertension; Z79.899 Other long term (current) drug therapy
CPT/HCPCS: 36415; 80048; 80061; 80076

== ENCOUNTER → 2020-05-05 | Outpatient (CLI) | payer MEDICARE ==
[2020-05-05 09:37] LABS: HEMOGLOBIN 12.7 g/dL (12.0-15.5); MEAN CORPUSCULAR HEMOGLOBIN 28.6 pg (27.0-33.4); MEAN CORPUSCULAR HGB CONC 33.4 g/dL (32.0-36.0); MEAN CORPUSCULAR VOLUME 86 fl (80-97); PLATELET COUNT 175 10^3/uL (150-450); RED BLOOD COUNT 4.44 10^6/uL (3.72-5.28); RED CELL DISTRIBUTION WIDTH 14.7 % (11.5-14.0); WHITE BLOOD COUNT 4.7 10^3/uL (4.0-10.5)
[2020-05-05 09:58] LABS: ALBUMIN 3.8 g/dL (3.5-5.0); ALKALINE PHOSPHATASE 54 U/L (38-126); ANION GAP 8 (5-19); ASPARTATE AMINO TRANSFERASE 30 U/L (14-36); BILIRUBIN,DIRECT 0.1 mg/dL (0.0-0.4); BILIRUBIN,TOTAL 0.6 mg/dL (0.2-1.3); BLOOD UREA NITROGEN 12 mg/dL (7-20); CALCIUM 9.4 mg/dL (8.4-10.2); CARBON DIOXIDE 28 mmol/L (22-30); CHLORIDE 103 mmol/L (98-107); CHOLESTEROL 144.13 mg/dL (0-200); GLUCOSE 95 mg/dL (75-110); POTASSIUM 4.1 mmol/L (3.6-5.0); TOTAL PROTEIN 5.9 g/dL (6.3-8.2); TRIGLYCERIDES 56 mg/dL (<150)
[2020-05-05 10:09] LABS: DIRECT LDL 51 mg/dL (<100)
--- OUTSIDE RECORDS SUMMARY | 2020-05-06 18:02 | XMS REPORT ---
:1935 [facility] [address] [place] [address] Care Team Providers Name Role Phone LUTHER Primary Care Physician Unavailable BERCHUCK Attending Clinician Unavailable Allergies, Adverse Reactions, Alerts Allergy Allergy Status Severity Reaction(s) Onset Inactive Treating C omments Name Type Date Date Clinician Lovastatin Propensity Active Severe Rash to adverse reactions to drug Chlorphenir Propensity Active Palpitations am-Dm-Aceta to adverse minophen reactions to drug Medications Ordered Filled Start Stop Current Ordering Indication Dosage Frequency Signature Comments Components Medication Medication Date Date Medication? Clinician (SIG) Name Name alirocumab 2014-06 Yes 75mg Inject 75 (PRALUENT 1-20 mg PEN) 75 13:15: subcutaneo mg/mL PnIj 46 usly. VIT 2014-06 Yes 1{tbl} Q.5D Take 1 C/E/ZN/DULCE 1-20 tablet by R/LUTEIN/ZE 13:15: mouth 2 AXAN 45 (two) (PRESERVISI times ON AREDS 2 daily. ORAL) psyllium 2014-06 Yes 1.7g QD Take 1.7 g husk, with 1-20 by mouth sugar, 13:15: once (METAMUCIL) 45 daily. Mix 3.4 gram/12 with a gram oral full glass powder (240 mL) of fluid. diclofenac 2014-06 Yes 2g Q.5D Apply 2 g (VOLTAREN) 1-20 topically 1 % topical 13:15: 2 (two) gel 45 times daily as needed. acetaminoph 2013-06 Yes 650mg Q4H Take 650 en 2-08 mg by (TYLENOL) 10:06: mouth 325 MG 55 every 4 tablet (four) hours as needed for Pain. aspirin 81 2013-06 Yes 81mg QD Take 81 mg MG EC 2-08 by mouth tablet 10:06: daily. 54 MULTIVITAMI 2013-06 Yes 1{sherri QD Take 1 N ORAL 2-08 t} caplet by 10:06: mouth 54 daily. calcium 2013-06 Yes 2{tbl} QD Take 2 carbonate-v 2-08 tablets by itamin D3 10:06: mouth (CALCIUM 54 daily. WITH VITAMIN D) 600 mg(1,500mg) -400 unit tablet fexofenadin 2013-06 Yes 180mg QD Take 180 e (STACIA) 2-08 mg by 180 MG 10:06: mouth tablet 54 daily. triamcinolo 2013-06 Yes 2{spray QD Place 2 ne 2-08 } sprays (NASACORT 10:06: into both AQ) 55 mcg 54 nostrils nasal spray daily. cholecalcif 2013-06 Yes 1000U QD Take 1,000 sera 2-08 Units by (CHOLECALCI 10:06: mouth FEROL) 54 daily. 1,000 unit tablet ALREX 0.2 % Yes 1[drp] Q.5D Place 1 DrpS 7-19 drop into ophthalmic 00:00: both eyes suspension 00 2 (two) times daily. nitroGLYcer 2010-[address] 0.4 in 0-03 mg under (NITROSTAT) 00:00: the tongue 0.4 MG SL 00 every 5 tablet (five) minutes as needed. ciclopirox Yes 1{appli Apply 1 1 % shampoo 3-21 cation} Applicatio 00:00: n 00 topically twice a week. triamcinolo Yes 1{appli Q1H Apply 1 ne 0.1 % 2-18 cation} Applicatio cream 00:00: n 00 topically as needed. estradiol Yes .5g Place 0.5 (ESTRACE) 1-18 g 0.01 % (0.1 00:00: vaginally mg/gram) 00 3 (three) vaginal times a cream week. Rare use montelukast 2009-06 Yes (SINGULAIR) 2-18 10 mg 00:00: tablet 00 rosuvastati 2009-06 Yes 20mg QD Take 20 mg n (CRESTOR) 2-18 by mouth 20 MG 00:00: daily. tablet 00 ezetimibe 2009-06 Yes 10mg QD Take 10 mg (ZETIA) 10 2-18 by mouth mg tablet 00:00: daily. 00 lisinopril 2009-06 Yes 20mg QD Take 20 mg (PRINIVIL,Z 2-18 by mouth ESTRIL) 20 00:00: daily. MG tablet 00 hydrochloro 2009-06 Yes 12.5mg QD Take 12.5 thiazide 2-18 mg by (MICROZIDE) 00:00: mouth 12.5 mg 00 daily. capsule colesevelam 2009-06 Yes 1875mg Take 1,875 (WELCHOL) 2-18 mg by 625 mg 00:00: mouth 2 tablet 00 (two) times daily with meals. amLODIPine 2009-06 Yes 5mg QD Take 5 mg (NORVASC) 5 2-18 by mouth MG tablet 00:00: every 00 evening. carvedilol 2009-06 Yes 40mg QD Take 40 mg (COREG CR) 2-18 by mouth 40 MG CR 00:00: daily. capsule 00 Problems Condition Condition Condition Status Onset Resolution Last Treatin g Comments Name Details Category Date Date Treatment Clinician Date History of History of 25037504 Active 2014-01-29 ND ND 01-29 17:27:30 (myocardial (myocardial 00:00: infarction) infarction) 00 Hypertensio Hypertensio 55284602 Active 2014-01-29 n n 01-29 17:27:41 00:00: 00 Hyperlipide Hyperlipide 83241864 Active 2014-01-29 jennifer, jennifer, 01-29 17:27:53 unspecified unspecified 00:00: 00 Allergic Allergic 65599550 Active 2014-01-29 rhinitis rhinitis 01-29 17:28:17 00:00: 00 Osteoarthri Osteoarthri 38954884 Active 2014-01-29 tis tis 01-29 17:28:30 00:00: 00 Melanoma of Melanoma of 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 Results This patient has no known results. Encounters Start End Encounter Admission Attending Care Care Encounter Date/Time Date/Time Type Type Clinicians Facility Department ID 2018-07-09 2018-07-09 Outpatient SAL PATTERSON [facility] [id number] 09:21:46 23:59:00 ABDI 2018-07-09 2018-07-09 Outpatient SAL LAURA [id number] 09:21:46 23:59:00 2018-07-05 2018-07-05 Outpatient SAL HUANG [id number] 09:59:04 10:30:00 2018-07-05 2018-07-05 Outpatient SAL PATTERSON [id number] 09:59:04 09:59:04 ABDI 2018-06-13 2018-06-13 Outpatient SAL PATTERSON [id number] 09:01:28 23:59:00 ABDI 2018-06-13 2018-06-13 Outpatient SAL HUANG [id number] 09:01:28 23:59:00 Plan of Treatment Planned Activity Planned Date Details Comments Future Scheduled Test [code = ] Future Scheduled Test [code = ] Future Scheduled Test [code = ] Future Scheduled Test [code = ] Future Scheduled Test [code = ] Future Scheduled Test [code = ] Future Scheduled Test [code = ] Future Scheduled Test [code = ] Future Scheduled Test [code = ] Future Scheduled Test [code = ] Future Scheduled Test [code = ] Future Scheduled Test [code = ] Future Scheduled Test [code = ] Future Scheduled Test [code = ] Social History Social Habit Start Date Stop Date Comments Alcohol Comment 2014-01-29 00:00:00 2014-01-29 00:00:00 Smoking Status Start Date Stop Date Never smoker 2018-07-05 00:00:00 Vital Signs Vital Name Observation Time Observation Value Comments Systolic blood pressure 2018-07-05 10:23:00 126 mm[Hg] Diastolic blood pressure 2018-07-05 10:23:00 75 mm[Hg] Heart rate 2018-07-05 10:23:00 63 /min Body temperature 2018-07-05 10:23:00 36.5 Chanelle Respiratory rate 2018-07-05 10:23:00 18 /min Body height 2018-07-05 10:23:00 164.5 cm Body weight 2018-07-05 10:23:00 94.7 kg BMI 2018-07-05 10:23:00 35.00 kg/m2 Oxygen saturation in Arterial blood by 2018-07-05 10:23:00 96 % Pulse oximetry Systolic blood pressure 2018-07-05 10:23:00 126 mm[Hg] Diastolic blood pressure 2018-07-05 10:23:00 75 mm[Hg] Heart rate 2018-07-05 10:23:00 63 /min Body temperature 2018-07-05 10:23:00 36.5 Chanelle Respiratory rate 2018-07-05 10:23:00 18 /min Body height 2018-07-05 10:23:00 164.5 cm Body weight 2018-07-05 10:23:00 94.7 kg BMI 2018-07-05 10:23:00 35.00 kg/m2 Oxygen saturation in Arterial blood by 2018-07-05 10:23:00 96 % Pulse oximetry Hospital Discharge Instructions Patient Instructions Octavio Lino, [facility] - 07/05/2018 10:00 AM [facility] Division of Gynecologic OncologyGynecologic Oncology Providers Gynecologic Oncology Nurses MD Della Spicer, BERNABE Azul, MD Indira Alvarez, BERNABE Roy, MD Xena Bain, MD Mely Rivero RN Angeles A. Secord, MD Alicia Johnson, MD Cinda Covington, MD Patience Pritchard, MD Carole Tilley, MD Minal Shanks, MD Xena Watts, S, URSZULA Barriga RN, ANP-BC Gilda Zarco, BERNABE, ANP Phyllis Subramanian RN, ANP SIMRAN Long, URSZULA Friend RN, RELISH MAKER We are very pleased that you have chosen [facility] for your medical care. For most people, a diagnosis of cancer can be a very frightening, confusing, and overwhelming experience. Your Gynecologic Oncology Team will be providing you with a lot of information about your condition and the treatment options. You may find it helpful to have someone accompany you to your doctor appointments. He/she can help you remember your questions and your doctor's answers. It may be helpful to write your questions down before you see your doctor. The Gynecologic Oncology Team consists of highly qualified doctors, nurses, and other healthcare professionals experienced in caring for women with cancer. The team's goal is to partner with you throughout your treatment, to provide you with the best and most compassionate care. You and your family are the reason why we are at [facility] and we want to do everything possible to assist you through your experience here. Please do not hesitate to let us know what we can do to provide you with the best care possible. [facility] Gynecologic Oncology Program Nurse ..... [phone] Gynecology Oncology Appointments: ....... ............................ [phone] Gynecology Oncology Emergencies: Ask for the Tissue Technologist/Oncology fellow special education aide .......... [phone] Physician Intervention Teacher: Xena De Jesus PA-C ask the gluer machine operator to page.......... [phone] Gynecology Oncology Clinic: ...... Located in the [facility], on level 2. Gynecology Oncology Inpatient Unit:............. Located in [facility], level 6, 6300 unit. Chemotherapy Treatment Center: ....... [phone] Located in the [facility], on level 4. Radiation Oncology: ... [phone] Located in the [facility], on level 00. Cancer Patient Support Program: .. [phone] The [facility] PatientSupport Program (DCPSP) provides on-site psychosocial support to patients and their families. The purpose and goal of the DCPSP is to provide encouragement and compassion to the families cope with the impact of cancer in their lives. The DCPSP offers continued support from the time of diagnosis, through treatment, recovery, and survival. All services are provided without charge. SERVICES INCLUDE: ? Individual counseling by licensed professional counselors and family therapists ? Family counseling bylicensed professional counselors and family therapists ? Guidance on coping strategies through relaxa tion and stress management techniques ? Support group for patients and their loved ones ? Self-ImageResources, located in the 0 level of the Cancer Center o Free wigs, turbans, and hats for patients oSelf-image counseling Genetic Evaluation and Counseling: ...... This program has been established for genetic evaluation and counseling for patients with a personal history of cancer or a strong family history of cancer. [place] for [facility]: [phone] Offers at a charge a fitness, nutrition, and stress management program for women with cancer. A referral is needed from your physician. Nutritional [phone] ? When you are a patient in the hospital ask your nurse or doctor to arrange for a psychiatry instructor to visit you. ? When in the outpatient clinics you can call the Nutrition Outpatient Clinic and schedule and appointment with a pediatric registered nurse or ask during your visit to the [facility] to see the geronimo duganian. This service is free of charge. Pastoral Services: Pastoral care can be arranged by calling ........... [phone] Patient Counseling: ? Cancer Patient Support Program ... [phone] ? Womens Behavioral Health Program (fee) ..... [phone] ? Stress Management Program [phone] Patient Education: ? Cancer Educational Series [phone] A weekly educational meeting forpatients and their families, meeting in the [facility]. ? [facility] .... [phone] A [employer] library, located in the 0 level of the [facility], houses a comprehensive collection of booklets, books, tapes and internet information. Pharmacy: [phone] Located on the 0 level of the [facility], is available to fill patient prescriptions Sunday 8:30 A.M. to 6:00 P.M. Support Group: [phone] ? Breast and Tissue Technologist Support Group, meets in the Cancer Center every other Sunday from 3-4:30. ? General Cancer Support Group, meets in the Cancer Center. All are welcome. See [facility] website, events section for dates and times. ? [facility] Oncology Support Group ..... [phone] Gis Developer: ? [facility] [phone] patients can receive assistance from a social worker clinical for housing, financial, home health needs, and emotional support Local Lodging: There are may hotels and motels convenient to [facility], for more information contact: ? Patient and Visitor Relations [phone] ? [employer] .......... [address] ~ [phone] (This is NOT a part of [facility]) ? Herbert Ratliff [place] an eighteen bedroom home close to [facility] for patients and their family to stay while receiving outpatient treatment at [facility], for more information contact your social worker clinical Additional Information from [facility]:? [email or web address] Please call with any questions or concerns prior to your next scheduled appointment. Contact Information Triage Line: Sunday-Sunday 8:00am-5pm If no answer, please leave a message with your name, date of , medical record number, anddoctors name, along with a brief description of your question or problem, and we will call you back as soon as possible. Paging Disease Case Manager: If you have an urgent problem after 4pm, during the weekend, or on a holiday, please call this number and ask the gluer machine operator to page the on-call GYNOncology Fellow. Postoperative concerns: Sunday-Sunday 8:00am-5pm If you have problems related to your surgery, please call this number and ask the gluer machine operator to page Xena De Jesus PA-C. Clinical Trial concerns: Sunday-Sunday 8:00am-5pm If you have questions about your participation in clinical trials or symptoms related to your study medication (unless on phase 1 study). Phase I Research Nurses: Sunday-Sunday 8:00am-4pm If you are on a Phase 1 clinical trial,please call the Phase 1 office concerning any questions you have before contacting the Tissue Technologist triage nurses. If you need to leave a message on our voicemail, please include your name, the name of the clinical trial, and the phone number where you can be reached. We will call you back as soon as possible.Appointment Hub: Sunday-Sunday 7:30am-4:30pm If you have questions or concerns regarding your appointments or need to make changes to your appointments, please contact the appointment hub. Medication Refills: Your pharmacy can fax refill requests to . Alternatively, you can call the triage line . Please allow 72 hours turnaround for refill requests. Insurance / FMLA Paperwork: Please allow for a 2 week turnaround time for all paperwork submitted. Please put your Name and Date of on the forms. Surgery Cancellations/Changes: Sunday-Sunday 8:30am-4pm May leave a message with your name, date of , medical record number, date of surgery, and doctor's name. We will return your call as soon as possible. Progress notes documented by your healthcare team will now be available on the My Chart portal. We believe that patients should be a part of the healthcare team. We encourage you to review notes after visits and in preparation for upcoming appointments. This provides the opportunity to review recommendations as well as to prepare questions for you healthcare team to address during your next visit. If you identify discrepancies in the documentation or have specific questions related to the notes, please bring themto your next scheduled visit to discuss with your physician, nurse practitioner, or physician administration assistant. With increased transparency, our hope is that we create more trust, better communication, more shared decision-making, and increased satisfaction. Please be aware that these notes will not be discussed over the phone or through My Chart messages. They will be discussed only at your next office visit with your provider. in [facility]
== END ==
LOC: OD 08:17
PROVIDERS: ATTEND Internal Medicine Cardiovascular Disease
DX: E78.00 Pure hypercholesterolemia, unspecified (principal); Z79.899 Other long term (current) drug therapy; E11.9 Type 2 diabetes mellitus without complications; I10 Essential (primary) hypertension
CPT/HCPCS: 36415; 80048; 80061; 80076; 83036; 84443; 85027